=== PATIENT | female | born 1965 | race Caucasian/White ===

== ENCOUNTER 2018-05-29 07:54 | Day surgery (SDC) | payer OTHER ==
[2018-05-28 17:46] VITALS: Ht 170.2 cm; Wt 79.1 kg
[2018-05-29] VITALS (19 sets, daily range): BP systolic 112–149; BP diastolic 61–77; PULSE 79–98; RESP 16–25
[~2018-05-29] VITALS: Ht 170.2 cm; Wt 79.1 kg
[~2018-05-29 07:54] MED LIST: LORA-408 PO; MAGNESIUM
--- NOTE | 2018-05-29 08:21 | HPN ---
Date/Time of Note Date/Time of Note DATE: 05/29/18 TIME: 08:21 Interval H&P Admission Note Pt. seen H&P reviewed: No system changes ELIU BERMEO MD May 29, 2018 08:21
[2018-05-29] MEDS ORDERED: LORA0.5T PO (08:44)
[2018-05-29] MEDS ORDERED: ERGO500013 PO (08:45)
--- NOTE | 2018-05-29 09:45 | SIPON ---
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
--- NOTE | 2018-05-29 09:46 | OPR ---
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 We discussed treatment options and she elects for hemithyroidectomy. She understands that if the final pathology is a malignancy, then she will require a completion thyroidectomy. The risks benefits and alternative surgery were discussed with the patient which include but not limited to bleeding, infection, scar, need for lifelong hormone replacement, injury to the recurrent laryngeal nerve, hoarseness, need for further surgery, and dysphagia. She understood these and signed consent. Procedure Description After informed consent was obtained, the patient was brought back to operating suite. She was intubated by anesthesia and sedated. The nerve monitoring aircraft maintenance technician was present and the patient was intubated with a nerve monitoring tube. A shoulder roll was placed. The neck was prepped and draped in usual sterile fashion. A 4 cm incision was marked in relaxed skin tension line just below the cricoid. The incision was carried down to the strap muscles. The strap muscles divided in the midline. The left strap muscles were retracted laterally and the thyroid gland was visualized. The superior pole was dissected out and the superior pole vessels were ligated with harmonic scalpel. The m iddle pole vessels were then dissected out and ligated with harmonic scalpel followed by the inferior pole vessels. I then dissected towards the inferior pole and identified the inferior parathyroid gland and preserved it with its blood supply intact. I then rotated the gland medially and identified the recurrent laryngeal nerve in the tracheoesophageal groove. The nerve was fol lowed up towards the larynx and the remaining thyroid attachments at Hughes's ligament were ligated. I then split the isthmus down the midline with a harmonic scalpel. The specimen was then sent as left thyroid lobe. The area was irrigated profusely with saline. Hemostasis was achieved with bipolar cautery. A small piece of Surgicel was placed in the wound bed. The wound was then closed in multiple layers with a 3-0 Vicryl to close the strap muscles platysma and deep dermis and a 5-0 Monocryl was used to close the skin in a subcuticular fashion. Mastisol, Steri-Strips, Telfa, and Tegaderm were placed on the skin. The patient was then extubated by anesthesia and brought to the recovery room in stable condition. ELIU BERMEO MD May 29, 2018 09:46
[2018-05-29] MEDS ORDERED: LIDOCAINE 1%/EPI (1:100,000) (MDV) 20 ML ONE (12:46)
--- NOTE | 2018-05-29 12:56 | PREAC ---
Date/Time of Note Date/Time of Note DATE: 05/29/18 TIME: 12:54 Anesthesia Eval and Record Evaluation Time Pre-Procedure Interview DATE: 05/29/18 TIME: 12:54 Age 52 Sex female NPO: 8 hrs Preoperative diagnosis Lt Thyroid mass Planned procedure Lt Hemithyroidectomy Past Medical History Past Medical History: Includes Cardio: Dyslipidemia GI: Obesity, Morbid obesity Psych: Anxiety Surgery & Anesthesia Issues No known issue Meds Anticoagulation: No Beta Ngoc within 24 hr: No Reason Beta Ngoc not given: Pt. not on B-Ngoc Reported Medications Ergocalciferol (Vitamin D2) (VITAMIN D2) 50,000 Unit Capsule, [address] UNIT PO EVERY SATURDAY, CAP 05/29/18 Lorazepam* (Lorazepam*) 0.5 Mg Tablet, 0.5 MG PO DAILY PRN for ANXIETY, TAB 05/29/18 Discontinued Reported Medications [Magnesium] No Conflict Check, 2 TAB DAILY 02/11/14 Lorazepam (Ativan) 1 Mg Tablet, 0.5 MG PO PRN 11/26/11 Meds reviewed: Yes Allergies Coded Allergies: No Known Allergy (Unverified , 05/29/18) Allergies Reviewed: Yes Labs/Studies Labs Reviewed: Reviewed by anesthesiologist test: Negative Pre-procedure Exam Last vitals Vital Signs Date Temp Pulse Resp B/P (MAP) Pulse Ox O2 O2 Flow FiO2 Time Delivery Rate 05/29/18 97.7 79 16 119/61 98 Room Air 09:46 (80) Airway: Adequate mouth opening, Adequate thyromental dist Mallampati: Mallampati II Teeth: Normal Lung: Normal Heart: Normal ASA Physical Status ASA physical status: 2 Emergency: None Planned Anesthetic General/MAC: ETT Planned Pain Management Parenteral pain med Pre-operative Attestations Prior to commencing anesthesia and surgery, the patient was re-evaluated, there was verification of: *The patient's identity *The results of appropriate recent lab work and preoperative vital signs *The above evaluation not changing prior to induction *Anesthetic plan, risk benefits, alternative and complications discussed with patient/family; questions answered; patient/family understands, accepts and wishes to proceed. WESLEY OLMSTEAD MD May 29, 2018 12:56
[2018-05-29] MEDS ORDERED: FENTAnyl 50 MCG/ML VIAL ONE (12:58)
[2018-05-29] MEDS ORDERED: MIDAZOLAM 1 MG/ML 2 ML INJ ONE (12:58)
[2018-05-29] MEDS ORDERED: ROCURONIUM 50 MG INJ ONE (14:36)
[2018-05-29] MEDS ORDERED: LIDOCAINE 2% (SDV) 5 ML INJ ONE (14:36)
[2018-05-29] MEDS ORDERED: SUCCINYLCHOLINE CHLORIDE 100 MG/5 ML SYG IV ONE (14:36)
[2018-05-29] MEDS ORDERED: PROPOFOL 20 ML ONE (14:36)
[2018-05-29] MEDS ORDERED: ONDANSETRON 4 MG INJ ONE (14:37)
[2018-05-29] MEDS ORDERED: CEFAZOLIN 1 GM INJ ONE (14:37)
[2018-05-29] MEDS ORDERED: ONDANSETRON 4 MG INJ IV PRN (15:00)
[2018-05-29] MEDS ORDERED: FENTAnyl 50 MCG/ML VIAL IV PRN (15:00)
[2018-05-29] MEDS ORDERED: DIPHENHYDRAMINE 50 MG INJ IV PRN (15:00)
[2018-05-29] MEDS ORDERED: MEPERIDINE 25 MG INJ IV PRN (15:00)
[2018-05-29] MEDS ORDERED: HYDROmorphONE 1 MG/5 ML IV SYRINGE IV PRN ×2 (15:00)
--- NOTE | 2018-05-29 15:00 | PAC ---
Date/Time of Note Date/Time of Note DATE: 05/29/18 TIME: 15:00 Post-Anesthesia Notes Post-Anesthesia Note Last documented vital signs Vital Signs Date Temp Pulse Resp B/P (MAP) Pulse Ox O2 O2 Flow FiO2 Time Delivery Rate 05/29/18 97.7 79 16 119/61 98 Room Air 09:46 (80) Activity: WNL Respiratory function: WNL Cardiovascular function: WNL Mental status: Baseline Pain reasonably controlled: Yes Hydration appropriate: Yes Nausea/Vomiting absent: Yes Comments BP:118/56, P:78, spo2:100%, T:98,9 WESLEY OLMSTEAD MD May 29, 2018 15:00
== END 2018-05-29 17:20 | disposition home or self-care (01) ==
LOC: SDS 07:54 → EDSTATUS 12:30 → SDS 17:20
PROVIDERS: ATTEND Otolaryngology
DX: D34 Benign neoplasm of thyroid gland (principal); E78.5 Hyperlipidemia, unspecified; E66.9 Obesity, unspecified; Z68.27 Body mass index [BMI] 27.0-27.9, adult
CPT/HCPCS: 60210; 84703; 88307; J0690; J1170; J2250; J2405; J3010; Z7512; Z7610